=== PATIENT | female | born 1990 | race Native Hawaiian/Other Pacific Islander ===

== ENCOUNTER 2020-08-27 12:01 | Emergency (ER) | payer SELFPAY ==
[2020-08-27 12:07] VITALS: BP 146/86
--- NOTE | 2020-08-27 12:41 | ED Physician Documentation ---
PD HPI UPPER EXT INJURY - Stated complaint Stated Complaint: RABIES EXPOSURE - Chief complaint Chief Complaint: Laceration - History obtained from History obtained from: Patient - History of Present Illness Location: Left, Hand Type of injury: Other (she was using flashlight at night up under eaves and a bat flew out and she believes scratched her hand with claw nail. She washed it right away. In talking with others and then [facility], she was told it could be rabies expsoure and to get eval and medical opinion. Seen at [facility] and referred ER) Where injury occurred: Home Timing - onset: How many days ago (3) Timing - duration: Days (3) Worsened by: Palpating Associated symptoms: No: Weakness, Numbness Similar symptoms before: Has not had sx before Recently seen: Clinic (went to [facility] and was advised to come to ER for Rabies meds.) Review of Systems Constitutional: denies: Fever, Chills Nose: denies: Rhinorrhea / runny nose, Congestion Throat: denies: Sore throat Respiratory: denies: Cough Neurologic: denies: Focal weakness, Numbness PD PAST MEDICAL HISTORY - Past Medical History Past Medical History: No - Allergies Allergies/Adverse Reactions: Allergies Allergy/AdvReac Type Severity Reaction Status Date / Time No Known Drug Allergies Allergy Verified 08/27/20 12:09 - Social History Does the pt smoke?: No Smoking Status: Never smoker PD ED PE NORMAL - Vitals Vital signs reviewed: Yes - General General: Alert and oriented X 3, No acute distress, Well developed/nourished - Derm Derm: Normal color, Warm and dry - Extremities Extremities: Other (left thenar area with superficial linear abrasion about 3 cm long. Not full thickness. Normal ROM. ) - Neuro Neuro: No motor deficit, No sensory deficit Results - Vitals Vitals: Oxygen O2 Source Room air PD MEDICAL DECISION MAKING - ED course Complexity details: considered differential (wound left thenar area that she believes is nail scratch and not bite. She is concerned though and had been informed that this could be enough bat exposure. She would like the rabies meds. ), d/w patient ED course: Low risk exposure without even known bite in bat that was acting normally. But cannot say for sure not a bite/tooth edwin. Departure - Departure Disposition: 01 Home, Self Care Clinical Impression: Exposure to bat without known bite Condition: Stable Record reviewed to determine appropriate education?: Yes Instructions: Rabies Comments: Return to the ER 3 days from now and again 7 days and 14 days from now for the remainder and the vaccination series for rabies. Expect some soreness at the scene site. Tylenol ibuprofen is okay. For the abrasion on your arm, clean with soap and water and apply some ointment once or twice daily. Recheck if signs of infection there. Discharge Date/Time: 08/27/20 14:09
[2020-08-27] MEDS ORDERED: RABIES IMMUNE GLOBULIN 300 UNITS/2 ML IM STA (13:05)
[2020-08-27] MEDS ORDERED: RABIES VACCINE 2.5 UNIT SYRINGE IM ONE (13:05)
== END 2020-08-27 14:09 | disposition home or self-care (01) ==
LOC: ED 12:01
DX: S60.512A Abrasion of left hand, initial encounter (principal); W55.82XA Struck by other mammals, initial encounter; Y93.89 Activity, other specified; Y92.007 Garden or yard of unspecified non-institutional (private) residence as the place of occurrence of the external cause; Z20.3 Contact with and (suspected) exposure to rabies; Z29.14 Encounter for prophylactic rabies immune globulin
CPT/HCPCS: 90471; 96372; 99282; 99283

== ENCOUNTER 2020-08-30 10:07 | Emergency (ER) | payer SELFPAY ==
[2020-08-30 10:22] VITALS: BP 131/81
[2020-08-30] MEDS ORDERED: RABIES VACCINE 2.5 UNIT SYRINGE IM ONE (10:27)
--- NOTE | 2020-08-30 17:49 | ED Physician Documentation ---
History of Present Illness - Stated complaint Stated Complaint: 2ND RABIES VAC - Chief complaint Chief Complaint: General - History obtained from History obtained from: Patient - Additonal information Additional information: 30-year-old woman presents after a scratch on his your hand from a bat for postexposure prophylaxis. Today is day 7. Patient is asymptomatic at this time. 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 : None HEENT: None Psych: None Musculoskeletal: None Derm: None - Past Surgical History Past Surgical History: Yes General: Cholecystectomy - Present Medications Home Medications: Ambulatory Orders Medication Instructions Recorded Confirmed No Known Home Medications 08/30/20 08/30/20 - Allergies Allergies/Adverse Reactions: Allergies Allergy/AdvReac Type Severity Reaction Status Date / Time No Known Drug Allergies Allergy Verified 08/27/20 12:09 - Social History Does the pt smoke?: No Smoking Status: Never smoker Does the pt drink ETOH?: No Does the pt have substance abuse?: No - Immunizations Immunizations are current?: Yes PD ED PE NORMAL - Vitals Vital signs reviewed: Yes - General General: Alert and oriented X 3 - HEENT HEENT: Atraumatic, PERRL, EOMI - Neck Neck: Supple, no meningeal sign - Cardiac Cardiac: RRR - Respiratory Respiratory: No respiratory distress, Clear bilaterally - Abdomen Abdomen: Normal bowel sounds, Non tender, Non distended - Female Female : Deferred - Rectal Rectal: Deferred - Back Back: No spinal TTP - Derm Derm: Normal color, Warm and dry - Extremities Extremities: No deformity - Neuro Neuro: Alert and oriented X 3 - Psych Psych: Normal mood, Normal affect Results - Vitals Vitals: Vital Signs - 24 hr 08/30/20 10:19 Temperature 37.1 C Heart Rate 71 Respiratory 16 Rate Blood Pressure 131/81 H O2 Saturation 100 Oxygen O2 Source Room air PD MEDICAL DECISION MAKING - ED course Complexity details: d/w patient ED course: 30-year-old woman presents for postexposure prophylaxis for rabies. She is doing well and was advised to return for her 14-day rabies vaccine. Strict return precautions given Departure - Departure Disposition: 01 Home, Self Care Clinical Impression: Rabies exposure, Exposure to bat without known bite Condition: Good Instructions: Rabies Vaccine suspension for injection Comments: Follow-up on Sunday for repeat rabies vaccine. Return for any new or worsening s ymptoms. Discharge Date/Time: 08/30/20 11:05
== END 2020-08-30 11:05 | disposition home or self-care (01) ==
LOC: ED 10:07
DX: Z20.3 Contact with and (suspected) exposure to rabies (principal); Z29.14 Encounter for prophylactic rabies immune globulin
CPT/HCPCS: 90471

== ENCOUNTER 2020-09-03 10:23 | Emergency (ER) | payer SELFPAY ==
[2020-09-03] MEDS ORDERED: RABIES VACCINE 2.5 UNIT SYRINGE IM ONE (10:34)
--- NOTE | 2020-09-03 10:36 | ED Physician Documentation ---
PD HPI WOUND RECHECK - Stated complaint Stated Complaint: 3RD RABIES SHOT - Chief complaint Chief Complaint: General - Histroy obtained from History obtained from: Patient - History of Present Illness Location: Left Hand Timing - onset: How many weeks ago (1) Associated symptoms: No: Fever, Redness, Swelling, Drainage Recently seen: Emergency Dept (By a bat and was concerned about rabies exposure. She is here for her third out of 4 rabies vaccine shots. 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 : None HEENT: None Psych: None Musculoskeletal: None Derm: None - Past Surgical History Past Surgical History: Yes General: Cholecystectomy - Present Medications Home Medications: Ambulatory Orders Medication Instructions Recorded Confirmed No Known Home Medications 08/30/20 08/30/20 - Allergies Allergies/Adverse Reactions: Allergies Allergy/AdvReac Type Severity Reaction Status Date / Time No Known Drug Allergies Allergy Verified 09/03/20 10:29 - Social History Does the pt smoke?: No Smoking Status: Never smoker Does the pt drink ETOH?: No Does the pt have substance abuse?: No - Immunizations Immunizations are current?: Yes PD ED PE NORMAL - Vitals Vital signs reviewed: Yes - General General: Alert and oriented X 3, No acute distress, Well developed/nourished - Extremities Extremities: Other (Some left hand with well-healing abrasion without any signs of infection.) Results - Vitals Vitals: Vital Signs - 24 hr 09/03/20 09/03/20 10:27 11:02 Temperature 36.9 C 37.0 C Heart Rate 79 67 Respiratory 17 16 Rate Blood Pressure 108/73 125/81 H O2 Saturation 100 100 Oxygen O2 Source Room air PD MEDICAL DECISION MAKING - ED course Complexity details: reviewed old records, considered differential, d/w patient Departure - Departure Disposition: 01 Home, Self Care Clinical Impression: Rabies, need for prophylactic vaccination against Condition: Stable Record reviewed to determine appropriate education?: Yes Comments: 1 last vaccination another week from now. Otherwise usual activities etc. Discharge Date/Time: 09/03/20 11:07
[2020-09-03 11:03] VITALS: BP 125/81
== END 2020-09-03 11:07 | disposition home or self-care (01) ==
LOC: ED 10:23
DX: Z23 Encounter for immunization (principal)
CPT/HCPCS: 90471

== ENCOUNTER 2020-09-10 10:50 | Emergency (ER) | payer SELFPAY ==
[2020-09-10] MEDS ORDERED: RABIES VACCINE 2.5 UNIT SYRINGE IM ONE (10:53)
--- NOTE | 2020-09-10 11:05 | ED Physician Documentation ---
History of Present Illness - Stated complaint Stated Complaint: LAST RABIES VACCINE - Chief complaint Chief Complaint: General - History obtained from History obtained from: Patient - History of Present Illness Pain level max: 0 Pain level now: 0 - Additonal information Additional information: Patient is here for her fourth rabies vaccination. She has had no symptoms. No complications. 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 HEENT: None Psych: None Musculoskeletal: None Derm: None - Past Surgical History Past Surgical History: Yes General: Cholecystectomy - Present Medications Home Medications: Ambulatory Orders Medication Instructions Recorded Confirmed No Known Home Medications 08/30/20 08/30/20 - Allergies Allergies/Adverse Reactions: Allergies Allergy/AdvReac Type Severity Reaction Status Date / Time No Known Drug Allergies Allergy Verified 09/10/20 10:53 - Social History Does the pt smoke?: No Smoking Status: Never smoker Does the pt drink ETOH?: No Does the pt have substance abuse?: No - Immunizations Immunizations are current?: Yes - POLST Patient has POLST: No PD ED PE NORMAL - Vitals Vital signs reviewed: Yes - General General: Alert and oriented X 3, No acute distress - HEENT HEENT: Moist mucous membranes - Neck Neck: Supple, no meningeal sign - Respiratory Respiratory: No respiratory distress - Derm Derm: Warm and dry - Neuro Neuro: Alert and oriented X 3 Results - Vitals Vitals: Vital Signs - 24 hr 09/10/20 10:53 Temperature 36.7 C Heart Rate 69 Respiratory 18 Rate Blood Pressure 135/84 H O2 Saturation 99 Oxygen O2 Source Room air PD MEDICAL DECISION MAKING - ED course Complexity details: reviewed old records, considered differential, d/w patient ED course: Patient was given her last rabies vaccination. No complications. Patient will follow-up with her doctor as needed for further care. This document was made in part using voice recognition software. While efforts are made to proofread this document, sound alike and grammatical errors may occur. Departure - Departure Disposition: 01 Home, Self Care Clinical Impression: Encounter for repeat administration of rabies vaccination Condition: Good Instructions: Rabies Vaccine suspension for injection Follow-Up: your,doctor as needed [Other] Comments: You have received your fourth rabies vaccination today. Return if you worsen.
[2020-09-10 11:29] VITALS: BP 126/76
== END 2020-09-10 11:25 | disposition home or self-care (01) ==
LOC: ED 10:50
DX: Z20.3 Contact with and (suspected) exposure to rabies (principal); Z29.14 Encounter for prophylactic rabies immune globulin
CPT/HCPCS: 90471; 99281

== ENCOUNTER 2020-10-22 07:00 | Outpatient (CLI) | payer OTHER | END 2020-10-22 23:59 | disposition home or self-care (01) | LOC: COV 07:00 | PROVIDERS: ATTEND Family Medicine | DX: U07.1 COVID-19 (principal) ==